=== PATIENT | female | born 1960 | race Two or more races ===

== ENCOUNTER 2019-06-17 09:17 | Outpatient (CLI) | payer OTHER | END 2019-06-17 10:13 | disposition home or self-care (01) | LOC: SONOGRAMA 09:17 | DX: E04.2 Nontoxic multinodular goiter (principal) ==

== ENCOUNTER 2020-11-12 07:48 | Outpatient (CLI) | payer OTHER | END 2020-11-12 07:56 | disposition home or self-care (01) | LOC: NUCLEAR 07:48 | DX: E04.2 Nontoxic multinodular goiter (principal) | CPT/HCPCS: 78013; A9512 ==

== ENCOUNTER 2021-07-22 10:15 | Outpatient (CLI) | payer OTHER | END 2021-07-22 10:21 | disposition home or self-care (01) | LOC: SONOGRAMA 10:15 | PROVIDERS: ATTEND Pathology Anatomic Pathology & Clinical Pathology | DX: E04.2 Nontoxic multinodular goiter (principal); D34 Benign neoplasm of thyroid gland; E07.89 Other specified disorders of thyroid; E04.8 Other specified nontoxic goiter ==